=== PATIENT | female | born 2000 | race Caucasian/White ===

== ENCOUNTER 2020-02-24 22:00 | Emergency (ER) | payer MEDICAID ==
[~2020-02-24] VITALS: Ht 165.1 cm; Wt 67.1 kg
[2020-02-24 22:01] VITALS: BP 138/91
--- NOTE | 2020-02-24 22:07 | NUR ---
PT AMBULATED TO BED 07 WITH STEADY GAIT.
--- NOTE | 2020-02-24 22:10 | NUR ---
19 YO F BIB SELF AFTER SLIPPING ABOUT 13 MIN PRIOR TO COMING TO ER. PT STATED SHE DID NOT HIT THE GROUND, WAS ABLE TO CATCH HERSELF, FELT A "TEAR" ON HER RIGHT UPPER THIGH 11/03. PT SEEN ABULATING TO BED WITH STEADY GAIT. PAIN WORSENS WHEN WALKING AND CHANGING, PT STATED SHE FEELS TINGLING. NO VISIBLE DEFORMITES, COOL TO TOUCH, NO BRUISING OR SWELLING PRESENT. POPLITEAL STRONG AND BILAT. CAP REFILL <3 SECS. PT STATED SHE DID NOT TAKE ANYTHING FOR PAIN. BED LOCKED IN LOWEST POSITION, SIDE RAIL X1. PT IN GOWN. HX: DENIES RX: DENIES
--- NOTE | 2020-02-24 22:21 | NUR ---
Female [employer] Ribbon Winder accompanied female patient for ermd's evaluation.
[2020-02-24] MEDS ORDERED: HYDROcodone/APAP 5/325 MG 1 TAB TAB PO ONE (22:30)
[2020-02-24] MEDS ORDERED: KETOROLAC 30 MG/ML VIAL IM ONE (22:30)
--- NOTE | 2020-02-24 22:30 | NUR ---
PT HAS ARRANGED TRANSPORTATION PRIOR TO TUBE COVERER.
--- NOTE | 2020-02-24 22:49 | NUR ---
PTS RIGHT THIGH WAS PLACED IN A FITO WRAP. PTS PMSC WNL. PT WAS ALSO GIVEN CRUTCHES. PTS SHOWED GOOD USE OF CRUTCHES.
--- NOTE | 2020-02-24 23:04 | NUR ---
ERMD AT BEDSIDE.
[2020-02-24 23:15] VITALS: BP 116/64
--- NOTE | 2020-02-24 23:15 | NUR ---
Patient discharged with v/s stable. Written and verbal after care instructions given and explained. Patient alert, oriented and verbalized understanding of instructions. Ambulatory with steady gait. All questions addressed prior to discharge. ID band removed. Patient advised to follow up with PMD. Rx of FLEXERIL, NAPROSYN given. Patient educated on indication of medication including possible reaction and side effects. Opportunity to ask questions provided and answered.
== END 2020-02-24 23:15 | disposition home or self-care (01) ==
LOC: MED 22:00
DX: S76.311A Strain of muscle, fascia and tendon of the posterior muscle group at thigh level, right thigh, initial encounter (principal); W01.0XXA Fall on same level from slipping, tripping and stumbling without subsequent striking against object, initial encounter; Y93.89 Activity, other specified; Y92.89 Other specified places as the place of occurrence of the external cause; Y99.8 Other external cause status
CPT/HCPCS: 96372; 99283; J1885

== ENCOUNTER 2023-01-02 16:34 | Emergency (ER) | payer SELFPAY ==
[~2023-01-02] VITALS: Ht 166.4 cm; Wt 66.2 kg
[2023-01-02 16:52] VITALS: BP 101/60; PULSE 76; RESP 20; TEMP 97.8; O2SAT 99
[2023-01-02] MEDS ORDERED: IBUPROFEN 600 MG TAB PO ONE (17:10)
[2023-01-02 17:38] LABS: BASOPHILS # (AUTO) 0.1 K/uL (0.00-0.22); BASOPHILS % (AUTO) 0.6 % (0.0-2.0); EOSINOPHILS # (AUTO) 0.1 K/uL (0-0.4); EOSINOPHILS % (AUTO) 1.2 % (0.0-4.0); HEMATOCRIT 39.2 % (36-48); HEMOGLOBIN 13.2 g/dL (12.0-16.0); LYMPHOCYTES # (AUTO) 2.7 K/uL (2.5-16.5); LYMPHOCYTES % (AUTO) 32.2 % (20.5-51.1); MEAN CORPUSCULAR HEMOGLOBIN 29 pg (27-31); MEAN CORPUSCULAR HGB CONC 34 g/dL (33-37); MONOCYTES # (AUTO) 0.5 K/uL (0.8-1.0); MONOCYTES % (AUTO) 5.9 % (1.7-9.3); NEUTROPHILS # (AUTO) 5.1 K/uL (1.8-7.7); NEUTROPHILS % (AUTO) 60.1 % (42.2-75.2); PLATELET COUNT (AUTO) 367 K/uL (140-450); RED CELL DISTRIBUTION WIDTH 13.2 % (11.6-13.7); WHITE BLOOD COUNT (AUTO) 8.5 K/uL (4.8-10.8)
[2023-01-02 17:58] LABS: ALANINE AMINOTRANSFERASE 19 U/L (12-78); ALBUMIN 4.4 g/dL (3.4-5.0); ALKALINE PHOSPHATASE 51 U/L (50-136); ANION GAP 12.2 (8-16); ASPARTATE AMINOTRANSFERASE 16 U/L (15-37); CALCIUM 9.3 mg/dL (8.5-10.1); CARBON DIOXIDE 28.1 mmol/L (21-32); CHLORIDE 104 mmol/L (98-107); CREATININE 0.8 mg/dL (0.6-1.3); GFR ARICAN-AMERICAN 114 mL/min (>90); GFR NON ARICAN-AMERICAN 94 mL/min (>90); GLUCOSE 106 mg/dL (74-106); POTASSIUM 4.3 mmol/L (3.5-5.1); SODIUM SERUM 140 mmol/L (136-145); TOTAL BILIRUBIN 0.6 mg/dL (0.0-1.0); UREA NITROGEN, BLOOD 10 mg/dL (7-18)
[2023-01-02 18:05] VITALS: O2SAT 99
[2023-01-02] MEDS ORDERED: IBUP-2213 PO (18:11)
[2023-01-02 18:12] VITALS: BP 101/60; PULSE 76; RESP 8; TEMP 97.8; O2SAT 99
== END 2023-01-02 18:20 | disposition home or self-care (01) ==
LOC: MED 16:34
DX: M94.0 Chondrocostal junction syndrome [Tietze] (principal); Z79.899 Other long term (current) drug therapy
CPT/HCPCS: 36415; 71045; 80053; 81025; 84484; 85025; 99284